=== PATIENT | female | born 1955 | race Caucasian/White ===

== ENCOUNTER 2018-09-06 15:08 | Observation (INO) | payer BC ==
[2018-09-06] MEDS ORDERED: NS 500 ML IV ONE (15:41)
--- NOTE | 2018-09-06 15:47 | EDPHY ---
H & P Time Seen by Provider: 09/06/18 15:17 HPI/ROS: CHIEF COMPLAINT: Headache, confusion HISTORY OF PRESENT ILLNESS: Patient is a 63-year-old female with a history of hypertension who presents to the emergency department with multiple complaints. The patient is visiting from [place]. [place]15 [place] She developed a mild headache. This is on the top of her head "like a beenie."It is mild. It does not radiate to her neck. The patient states that she had approximately 45 min to an hour of word-finding difficulty. She also felt confused and slow of thought. Patient's family was with her and noticed the same symptoms. Patient now states that her speech has improved. She does not feel as confused as previously. She denies any chest pain or shortness of breath. No abdominal pain. No nausea or vomiting. No recent trauma or fall. The patient had a similar episode previously. She was seen and [place] and told that she had anxiety. REVIEW OF SYSTEMS: 10 systems were reveiwed and are negative with the exception of the elements mentioned in the history of present illness. Past Medical/Surgical History: Includes hypertension. She is not taking any medication for this. She is enrolled in a study for meditation and hypertension. Past surgical history: Social history: Patient is from [place]. She does not smoke. Smoking Status: Never smoked Physical Exam: Vitals noted GENERAL: Well-appearing, in no acute distress, alert. HEENT: Eyes normal to inspection, normal pharynx, no signs of dehydration. NECK: Normal, supple. RESPIRATORY: Clear to auscultation bilaterally, no rales, rhonchi or wheezing. CVS: Regular rate and rhythm, no rubs, murmurs, or gallops. ABDOMEN: Soft, nontender, nondistended, no organomegaly. BACK: Normal to inspection, no CVA tenderness. SKIN: Normal color, no rash, warm, dry. No pallor. EXTREMITIES: No pedal edema, no calf tenderness, no Homans sign or cords, no joint swelling. NEURO/PSYCH: Higher functions: Alert and Oriented x3. Normal speech and cognition. Normal mood and affect. Cranial nerves: Normal as tested. Cerebellar: Normal as tested. Good finger to nose, good [id number], normal gait. Peripheral exam: Normal motor exam. Normal sensation. Normal reflexes. Constitutional: Initial Vital Signs Temperature (C) 36.8 C 09/06/18 15:12 Heart Rate 90 09/06/18 15:12 Respiratory Rate 20 09/06/18 15:12 Blood Pressure 171/123 H 09/06/18 15:12 O2 Sat (%) 99 09/06/18 15:12 O2 Delivery Mode Room Air Allergies/Adverse Reactions: Penicillins Allergy (Verified 09/06/18 15:11) Medical Decision Making - Diagnostics Imaging Results: Imaging Impressions Head CT 09/06/18 15:42 Impression: Normal. Findings and recommendations discussed with AYDEE AN at 4:10 PM hour, 09/06/2018. Final report concurs with initial preliminary interpretation. ED Course/Re-evaluation: In the emergency department discussed possible etiologies with the patient and family. I answered all her questions. IV was placed. Patient's initial blood pressure was elevated at 170 1/123. Repeat blood pressure improved to 150 5/ 85. I did not feel the patient needed to have her blood pressure acutely lowered with medication. Laboratory studies, EKG and head CT were ordered. The patient had a nonfocal neuro exam. I do not feel she is a candidate for tPA. Glucose was 176 EKG shows normal sinus rhythm, normal rate, normal axis, normal intervals. There are no ST or T-wave abnormalities. EKG is normal as interpreted by me. Patient's sodium was slightly low 133. The rest of her electrolytes were unremarkable. CT CBC was normal. Troponin was negative. Head CT: Please refer the dictated report. No acute disease noted. I discussed the results with the patient. I answered all her questions. I recommended admission for further evaluation for possible TIA. The patient agreed with this plan. On recheck the patient had a normal neuro exam. No focal deficits. No word-finding difficulty. I discussed the case with Dr. Weston from the hospitalist service. Differential Diagnosis: My differential includes but is not limited to TIA, ischemic CVA, hemorrhagic CVA, dissection, aneurysm, ACS, acute ID, dysrhythmia, electrolyte abnormality, sugar abnormality, dehydration - Data Points Laboratory Results: Laboratory Results 09/06/18 15:33 09/06/18 15:33 09/06/18 09/06/18 09/06/18 15:50 15:49 15:43 WBC RBC Hgb Hct MCV MCH MCHC RDW Plt Count MPV Neut % (Auto) Lymph % (Auto) [place] % (Auto) Eos % (Auto) Baso % (Auto) Nucleat RBC Rel Count Absolute Neuts (auto) Absolute Lymphs (auto) Absolute Monos (auto) Absolute Eos (auto) Absolute Basos (auto) Absolute Nucleated RBC Immature Gran % Immature Gran # PT INR APTT Sodium Potassium Chloride Carbon Dioxide Anion Gap BUN Creatinine Estimated GFR Glucose POC Glucose 176 mg/dL H mg/dL (70-100) Calcium POC Troponin I 0.01 ng/mL ng/mL (0.00-0.08) Urine Color PALE YELLOW Urine Appearance CLEAR Urine pH 8.0 H (5.0-7.5) Ur Specific [place] 1.004 (1.002-1.030) Urine Protein NEGATIVE (NEGATIVE) Urine Ketones 1+ H (NEGATIVE) Urine Blood NEGATIVE (NEGATIVE) Urine Nitrate NEGATIVE (NEGATIVE) Urine Bilirubin NEGATIVE (NEGATIVE) Urine Urobilinogen NEGATIVE EU EU (0.2-1.0) Ur Leukocyte Esterase NEGATIVE (NEGATIVE) Urine RBC 1-3 /hpf /hpf (0-3) Urine WBC 1-3 /hpf /hpf (0-3) Ur Epithelial Cells NONE SEEN /lpf /lpf (NONE-1+) Urine Glucose NEGATIVE (NEGATIVE) 09/06/18 09/06/18 09/06/18 15:33 15:33 15:33 WBC 7.12 10^3/uL 10^3/uL (3.80-9.50) RBC 4.51 10^6/uL 10^6/uL (4.18-5.33) Hgb 13.8 g/dL g/dL (12.6-16.3) Hct 40.0 % % (38.0-47.0) MCV 88.7 fL fL (81.5-99.8) MCH 30.6 pg pg (27.9-34.1) MCHC 34.5 g/dL g/dL (32.4-36.7) RDW 12.9 % % (11.5-15.2) Plt Count 333 10^3/uL 10^3/uL (150-400) MPV 9.1 fL fL (8.7-11.7) Neut % (Auto) 72.4 % % (39.3-74.2) Lymph % (Auto) 19.4 % % (15.0-45.0) Floyd % (Auto) 7.0 % % (4.5-13.0) Eos % (Auto) 0.3 % L % (0.6-7.6) Baso % (Auto) 0.6 % % (0.3-1.7) Nucleat RBC Rel Count 0.0 % % (0.0-0.2) Absolute Neuts (auto) 5.16 10^3/uL 10^3/uL (1.70-6.50) Absolute Lymphs (auto) 1.38 10^3/uL 10^3/uL (1.00-3.00) Absolute Monos (auto) 0.50 10^3/uL 10^3/uL (0.30-0.80) Absolute Eos (auto) 0.02 10^3/uL L 10^3/uL (0.03-0.40) Absolute Basos (auto) 0.04 10^3/uL 10^3/uL (0.02-0.10) Absolute Nucleated RBC 0.00 10^3/uL 10^3/uL (0-0.01) Immature Gran % 0.3 % % (0.0-1.1) Immature Gran # 0.02 10^3/uL 10^3/uL (0.00-0.10) PT 12.7 SEC SEC (12.0-15.0) INR 0.99 (0.83-1.16) APTT 28.6 SEC SEC (23.0-38.0) Sodium 133 mEq/L L mEq/L (135-145) Potassium 3.8 mEq/L mEq/L (3.5-5.2) Chloride 97 mEq/L mEq/L (97-110) Carbon Dioxide 22 mEq/l mEq/l (22-31) Anion Gap 14 mEq/L mEq/L (6-14) BUN 9 mg/dL mg/dL (7-23) Creatinine 0.6 mg/dL mg/dL (0.6-1.0) Estimated GFR > 60 Glucose 185 mg/dL H mg/dL (70-100) POC Glucose Calcium 10.0 mg/dL mg/dL (8.5-10.4) POC Troponin I Urine Color Urine Appearance Urine pH Ur Specific [place] Urine Protein Urine Ketones Urine Blood Urine Nitrate Urine Bilirubin Urine Urobilinogen Ur Leukocyte Esterase Urine RBC Urine WBC Ur Epithelial Cells Urine Glucose Medications Given: Discontinued Medications Sodium Chloride (Ns) 500 mls @ 500 mls/hr IV EDNOW ONE PRN Reason: Protocol Stop: 09/06/18 16:40 Last Admin: 09/06/18 16:02 Dose: 500 mls Point of Care Test Results: Chemistry 09/06/18 09/06/18 15:49 15:43 POC Glucose 176 mg/dL H mg/dL (70-100) POC Troponin I 0.01 ng/mL ng/mL (0.00-0.08) Departure - Departure Disposition: [facility] Inpatient Acute Clinical Impression: Aphasia, Hyponatremia Altered mental status Qualifiers: Altered mental status type: unspecified Qualified Code(s): R41.82 - Altered mental status, unspecified Condition: Fair Referrals: AVIS ORTIZ [Other] - As per Instructions
[2018-09-06 15:51] LABS: PLATELET COUNT 333 10^3/uL (150-400)
[2018-09-06 15:59] LABS: INR 0.99 (0.83-1.16); PROTIME(PATIENT) 12.7 SEC (12.0-15.0)
[2018-09-06] MEDS ORDERED: ONDANSETRON 4 MG/2 ML VIAL IVP PRN (16:41)
[2018-09-06] MEDS ORDERED: ONDANSETRON DISINTEGRATING 4 MG TAB PO PRN (16:41)
[2018-09-06] MEDS ORDERED: ACETAMINOPHEN 325 MG TAB PO PRN (16:41)
--- NOTE | 2018-09-06 17:28 | PDGENHP ---
History and Physical - Chief Complaint Asphasia - History of Present Illness 63 y/o w/hx of HTN and visiting from [place] presents w/TIA like symptoms after hiking the [place] w/her family. She reports she started the trail around 11:00am and when she came back down around 2:15pm (after a 2-3 mile hike), she felt "really bad," dizzy, nauseous, headache and difficulty finding words for approximately 45 minutes. Since that time, symptoms have resolved except for mild MA. She denies hx of TIA, stroke, blood clots. Denies CP, palpitations, SOB. Reports similar symptoms occurring in May and was deemed stress-induced/ panic attack and given a prescription for Valium. She does not think today was a panic attack as she admits to having a few panic attacks decades ago. She is being admitted for further work-up, treatment and monitoring. History Information - Allergies/Home Medication List Allergies/Adverse Reactions: Penicillins Allergy (Verified 09/06/18 15:11) Home Medications: Herbals/Supplements -Info Only 1 ea PO DAILY 09/06/18 [Last Taken 09/06/18] Multivitamins [Multivitamin (*)] 1 each PO DAILY 09/06/18 [Last Taken 09/06/18] I have personally reviewed and updated: family history, medical history, social history, surgical history - Past Medical History hypertension (Not treated. Currently enrolled in a mediation workshop to lessen HTN.) - Surgical History Additional surgical history: C/S - Family History Positive for: myocardial infarction - Social History Smoking Status: Never smoked Alcohol Use: Occasionally (Reports having a heavy etoh hx but reports she has lessened this and her last drink was earlier this week) Drug Use: None Additional social history: Here for a wedding. Was planning to fly back tonight. 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 Review of Systems Review of Systems: ROS: 10pt was reviewed & negative except for what was stated in HPI & below Physical Exam Physical Exam: Lab data and imaging were reviewed. Case discussed w/admitting physician, Dr. Kolton Weston. WBC: 7.12 H/H: 13.8/40.0 Plt count: 333 Na: 133 K: 3.8 Cl: 97 Co2: 22 BUN/Cr: 9/0.6 INR: 0.99 Troponin: 0.01 UA: Negative EKG: NSR Head CT w/o contrast: Normal, no intracranial processes or hemorrhage Temp Pulse Resp BP Pulse Ox 36.8 C 81 16 155/85 H 97 09/06/18 15:12 09/06/18 15:38 09/06/18 15:38 09/06/18 15:38 09/06/18 15:38 Constitutional: no apparent distress, appears nourished, not in pain Eyes: PERRL, anicteric sclera, EOMI Ears, Nose, Mouth, Throat: moist mucous membranes, hearing normal, ears appear normal, no oral mucosal ulcers Cardiovascular: regular rate and rhythym, no murmur, rub, or gallop, No edema Peripheral Pulses: 2+: dorsalis-pedis (R), dorsalis-pedis (L) Respiratory: no respiratory distress, no rales or rhonchi, clear to auscultation Gastrointestinal: normoactive bowel sounds, soft, non-tender abdomen, no palpable masses Genitourinary: no bladder fullness, no bladder tenderness Skin: warm, normal color, no rashes or abrasions, no fluctuance, no induration, No mottled Musculoskeletal: full muscle strength, no muscle tenderness, normal joint ROM, no joint effusions Neurologic: AAOx3, sensation intact bilaterally, CN II-XII Intact Psychiatric: not encephalopathic, thought process linear, anxious (Tearful because she has "so much work to do. How am I going to do it?") Lymph, Heme, Immunologic: no cervical LAD, no supraclavicular LAD Lab Data & Imaging Review 09/06/18 15:33 09/06/18 15:33 WBC 7.12 10^3/uL (3.80-9.50) 09/06/18 15:33 RBC 4.51 10^6/uL (4.18-5.33) 09/06/18 15:33 Hgb 13.8 g/dL (12.6-16.3) 09/06/18 15:33 Hct 40.0 % (38.0-47.0) 09/06/18 15:33 MCV 88.7 fL (81.5-99.8) 09/06/18 15:33 MCH 30.6 pg (27.9-34.1) 09/06/18 15:33 MCHC 34.5 g/dL (32.4-36.7) 09/06/18 15:33 RDW 12.9 % (11.5-15.2) 09/06/18 15:33 Plt Count 333 10^3/uL (150-400) 09/06/18 15:33 MPV 9.1 fL (8.7-11.7) 09/06/18 15:33 Neut % (Auto) 72.4 % (39.3-74.2) 09/06/18 15:33 Lymph % (Auto) 19.4 % (15.0-45.0) 09/06/18 15:33 [place] % (Auto) 7.0 % (4.5-13.0) 09/06/18 15:33 Eos % (Auto) 0.3 % (0.6-7.6) L 09/06/18 15:33 Baso % (Auto) 0.6 % (0.3-1.7) 09/06/18 15:33 Nucleat RBC Rel Count 0.0 % (0.0-0.2) 09/06/18 15:33 Absolute Neuts (auto) 5.16 10^3/uL (1.70-6.50) 09/06/18 15:33 Absolute Lymphs (auto) 1.38 10^3/uL (1.00-3.00) 09/06/18 15:33 Absolute Monos (auto) 0.50 10^3/uL (0.30-0.80) 09/06/18 15:33 Absolute Eos (auto) 0.02 10^3/uL (0.03-0.40) L 09/06/18 15:33 Absolute Basos (auto) 0.04 10^3/uL (0.02-0.10) 09/06/18 15:33 Absolute Nucleated RBC 0.00 10^3/uL (0-0.01) 09/06/18 15: Immature Gran % 0.3 % (0.0-1.1) 09/06/18 15: Immature Gran # 0.02 10^3/uL (0.00-0.10) 09/06/18 15:33 PT 12.7 SEC (12.0-15.0) 09/06/18 15:33 INR 0.99 (0.83-1.16) 09/06/18 15:33 APTT 28.6 SEC (23.0-38.0) 09/06/18 15:33 Sodium 133 mEq/L (135-145) L 09/06/18 15:33 Potassium 3.8 mEq/L (3.5-5.2) 09/06/18 15:33 Chloride 97 mEq/L (97-110) 09/06/18 15:33 Carbon Dioxide 22 mEq/l (22-31) 09/06/18 15:33 Anion Gap 14 mEq/L (6-14) 09/06/18 15:33 BUN 9 mg/dL (7-23) 09/06/18 15:33 Creatinine 0.6 mg/dL (0.6-1.0) 09/06/18 15:33 Estimated GFR > 60 09/06/18 15:33 Glucose 185 mg/dL (70-100) H 09/06/18 15:33 POC Glucose 176 mg/dL (70-100) H 09/06/18 15:43 Calcium 10.0 mg/dL (8.5-10.4) 09/06/18 15:33 POC Troponin I 0.01 ng/mL (0.00-0.08) 09/06/18 15:49 Urine Color PALE YELLOW 09/06/18 15:50 Urine Appearance CLEAR 09/06/18 15:50 Urine pH 8.0 (5.0-7.5) H 09/06/18 15:50 Ur Specific [place] 1.004 (1.002-1.030) 09/06/18 15:50 Urine Protein NEGATIVE (NEGATIVE) 09/06/18 15:50 Urine Ketones 1+ (NEGATIVE) H 09/06/18 15:50 Urine Blood NEGATIVE (NEGATIVE) 09/06/18 15:50 Urine Nitrate NEGATIVE (NEGATIVE) 09/06/18 15:50 Urine Bilirubin NEGATIVE (NEGATIVE) 09/06/18 15:50 Urine Urobilinogen NEGATIVE EU (0.2-1.0) 09/06/18 15:50 Ur Leukocyte Esterase NEGATIVE (NEGATIVE) 09/06/18 15:50 Urine RBC 1-3 /hpf (0-3) 09/06/18 15:50 Urine WBC 1-3 /hpf (0-3) 09/06/18 15:50 Ur Epithelial Cells NONE SEEN /lpf (NONE-1+) 09/06/18 15:50 Urine Glucose NEGATIVE (NEGATIVE) 09/06/18 15:50 Assessment & Plan Assessment: 63 y/o female w/hx of HTN that is not treated but undergoing mediation workshop for it presents w/ 45 minutes worth of asphasia, TIA symptoms. Her vital signs are the following: BP 155/85, HR 81, Resp 16, temp 36.8, 97% RA #Aphasia (Acute): Since arrival to ED, has resolved. -TIA work-up including: --neurology consult --brain MRI w/o contrast --lipids in AM --[employer] consult --cont tele monitoring --cycle trop x 1 -TSH pending #Headache -Tylenol PRN -Cold packs -Could be from dehydration; cont IVF x 1 bag #Hyponatremia (Acute) -133 -Appeared euvolemic however was involved w/strenuous hike -Received 500 ml NS in ED; cont IVF x 1 bag -Check Na in AM Diet: Regular once passes one-time RN swallow test Code: Full VTE ppx: SCDs Dispo: Admit to obs
[2018-09-06] MEDS ORDERED: NS 1,000 ML IV SCH (17:45)
--- NOTE | 2018-09-06 18:31 | HOSPPROG ---
Hospitalist Progress Note Assessment/Plan: I have personally seen and evaluated Ms. Catia Bales. I agree with the assessment and plan as outline in separate documentation by PIECE JOBBER, Amy Romero. Objective: Vital Signs Temp Pulse Resp BP Pulse Ox 36.7 C 87 18 148/85 H 97 09/06/18 17:52 09/06/18 17:52 09/06/18 17:52 09/06/18 17:52 09/06/18 17:52 PT 12.7 SEC (12.0-15.0) 09/06/18 15:33 INR 0.99 (0.83-1.16) 09/06/18 15:33 ICD10 Worksheet Patient Problems: Problems Problem Status Onset Altered mental status Acute Aphasia Acute Hyponatremia Acute
--- NOTE | 2018-09-06 22:11 | CPEKG ---
Test Reason : OPEN Blood Pressure : / mmHG Vent. Rate : 075 BPM Atrial Rate : 076 BPM P-R Int : 148 ms QRS Dur : 083 ms QT Int : 413 ms P-R-T Axes : 080 048 033 degrees QTc Int : 462 ms Sinus rhythm Confirmed by Aydee Magallanes ([id number]) on 09/06/2018 10:10:37 PM Referred By: AYDEE MAGALLANES Confirmed By:Aydee Magallanes
[2018-09-07 07:57] VITALS: BP 130/71
--- NOTE | 2018-09-07 08:45 | HOSPPROG ---
Hospitalist Progress Note Assessment/Plan: 63 y/o female w/hx of HTN that is not treated but undergoing mediation workshop for it presents w/ 45 minutes worth of asphasia, TIA symptoms. First encounter , chart reviewed. *Neurologic symptoms/likely due to dehydration and possible atypical migraine -MRI and CT stable -TSH stable -trop negative x 2 -LDL elevated at 113 *HTN *headache -likely due to being in high altitude, here from [facility] *hyponatremia -resolved *plan: reviewed her care w Dr Cleveland and ok to dc home Subjective: Catia has no specific complaints, bit tired. Objective: Vital Signs Temp Pulse Resp BP Pulse Ox 36.9 C 69 11 L 130/71 H 97 09/07/18 07:55 09/07/18 07:55 09/07/18 07:55 09/07/18 07:55 09/07/18 07:55 Laboratory Results 09/07/18 05:20 09/06/18 09/07/18 09/08/18 05:59 05:59 05:59 Intake Total 950 Balance 950 PT 12.7 SEC (12.0-15.0) 09/06/18 15:33 INR 0.99 (0.83-1.16) 09/06/18 15:33 - Physical Exam Constitutional: no apparent distress, appears nourished, not in pain Eyes: PERRL Ears, Nose, Mouth, Throat: hearing normal Cardiovascular: regular rate and rhythym, no murmur, rub, or gallop Respiratory: no respiratory distress Skin: warm Neurologic: AAOx3, other (tongue midline, rn home care equal, pull ups of toes equal), No pronator drift, No facial droop Psychiatric: interacting appropriately, not anxious, not encephalopathic, thought process linear ICD10 Worksheet Patient Problems: Problems Problem Status Onset Altered mental status Acute Aphasia Acute Hyponatremia Acute
[2018-09-07] MEDS ORDERED: MULTIVITAMINS 1 EACH TAB PO SCH (09:00)
--- NOTE | 2018-09-07 10:10 | NEUROPROG ---
Assessment: [id number] - Neurology Consult: - CC: Dr. Kolton Weston consulted neurology for aphasia. Results placed in EMR for his review. - HPI: 09/07/18: Pt noted on 09/06/18 after hiking that she suddenly felt dizzy, nauseous , had a headache, and noted problems speaking. Symptoms lasted 45 minutes then resolved except for a mild headache that has persisted overnight but is improving. Pt had similar episode in May 2017 (vision changes) attributed to an ocular migraine. Pt presented to [facility] on 09/06/18 where she had no neurologic deficits. Brain MRI wo was normal. I saw pt on 09/07/18. Her neurologic exam was normal. Given her symptoms had been recurrent (May 2017 and August 2018) and had persisted for 45 minutes in the setting of a normal brain MRI makes me believe she did not have a stroke or TIA but instead had an atypical migraine. No further treatment or evaluation needed at this time. She can f/u with her PCM when she returns to her home in [place], [place]. - PMHx: HTN - SHx: [place] FHx: [place] - ROS: Pt denied acute fever, total vision loss, active severe chest pain, respiratory failure, total body severe rash, total bowel/bladder incontinence, psychosis, active seizures, or active bleeding - O: VS reviewed General: Alert Eyes: Fundoscopic exam not able to visualize optic disks CV: Heart RRR, no murmur, no carotid bruit Lungs: Clear to auscultation bilaterally, no rhonchi or rales Neuro: - Mental: . Oriented x person/place/date . concentration appears normal . speech fluency/comprehension normal . memory appears normal . fund of knowledge appear intact - Cranial Nerves: . II: PERRL, VFFTC . III/IV/: EOMI, no nystagmus, normal smooth pursuits, no Ptosis . V: facial sensation intact to LT . VII: face symmetric to eye closure and smile . VIII: hearing intact to conversation . IX/X: uvula raises symmetrically . XI: SCM 5/5 B/L strength . XII: tongue protrudes midline w/nl strength - Motor: . Tone: normal tone in all 4 extremity . Strength: no pronator drift, strength 5/5 throughout (B/L delt, bic, tri, hand jewel cupping machine operator, hf/he, df/pf) - Reflexes: B/L bic/BR/patella 2/4 - Sensory: all 4 extremity intact to light touch - Coord: ftftab-oa-bard wnl, ANA wnl, cmxr-sp-mvvl wnl - Gait: deferred - Labs: 09/06/18- TSH wnl - Rads: 09/06/18- Brain MRI wo: normal (I personally visualized the images on 09/07/18) - Assessment/Recs: 1. 45 minutes of speech disturbance, nausea, headache, and dizziness on 09/06/18 : Given her symptoms had been recurrent (May 2017 and August 2018) and had persisted for 45 minutes in the setting of a normal brain MRI makes me believe she did not have a stroke or TIA but instead had an atypical migraine. No further treatment or evaluation needed at this time. She can f/u with her PCM when she returns to her home in [place], [place]. Her sudden change in neurologic status has resolved. Objective: Vital Signs Temp Pulse Resp BP Pulse Ox 36.9 C 69 11 L 130/71 H 97 09/07/18 07:55 09/07/18 07:55 09/07/18 07:55 09/07/18 07:55 09/07/18 07:55 Laboratory Results 09/07/18 05:20 09/06/18 09/07/18 09/08/18 05:59 05:59 05:59 Intake Total 950 Balance 950 PT 12.7 SEC (12.0-15.0) 09/06/18 15:33 INR 0.99 (0.83-1.16) 09/06/18 15:33 Allergies/Adverse Reactions: Penicillins Allergy (Verified 09/06/18 15:11)
--- NOTE | 2018-09-07 10:36 | ASMTLACE ---
LACE Length of stay for Answers: 1 day current admission Acuity / Level of Answers: No Care: Did the patient have an inpatient admission? Comorbidities - select Answers: Other Notes: HTN all that apply # of Emergency department Answers: 1-2 visits in the last 6 months Score: 3 Date Signed: 09/07/2018 10:35 AM Electronically Signed By:Henrietta Herrera RN
--- NOTE | 2018-09-07 10:37 | GDS ---
[f rep st] DISCHARGE SUMMARY DISCHARGE DIAGNOSES: 1. Neurologic symptoms, most likely due to dehydration and atypical migraine. 2. Hypertension. 3. Headache. 4. Hyponatremia. CONSULTATION: Dr. Donnell Cleveland. HISTORY OF PRESENT ILLNESS: Briefly, the patient is a 63-year-old female with a history of hypertens ion that is not treated, but undergoing meditation workshop for it, who presented with 45 minutes of difficulty speaking and overall just feeling poorly. She was admitted. She had an MRI and CT perfor med which were stable. She was evaluated by Neurology, who thought her symptoms were most consistent with an atypical migraine. She will be discharged home and follow up with her PCP. HOSPITAL COURSE: 1. Neurologic symptoms. I suspect this is mainly due to dehydration and possibly atypical migraine. She is much improved with fluids. 2. Hypertension. She is aware of this history. She is in a study in the [facility] to see if medi tation will help her blood pressure. 3. Headache. I suspect this is due to being in high altitude. She was hiking and became very dehyd rated. Improved. 4. Hyponatremia, resolved. DISCHARGE CONDITION: Stable. Blood pressure is 130/71, heart rate is 69, respiratory rate of 11, te mperature 36.9 Celsius, O2 sats on room air 97%. MEDICATIONS AT DISCHARGE: Please see the EMR. DISCHARGE INSTRUCTIONS: 1. To follow up with her PCP in regard to her elevated LDL and her hypertension. 2. Stay well hydrated. 3. If she has any fevers, chills, chest pain, stroke-like symptoms, return to the ER. /[id number]/MODL
--- NOTE | 2018-09-07 10:39 | ASMTCMCOM ---
CM Note CM Note Notes: Reviewed chart, pt admitted after feeling dizzy, sob, and headache after a hike around the [facility]. Pt is visiting from [place]. ruling out TIA. Pt is otherwise independent and will dc home with support of family when medically stable. CM availble should her needs change. DC Plan: Independent Date Signed: 09/07/2018 09:58 AM Electronically Signed By:Henrietta Herrera RN
== END 2018-09-07 11:52 | disposition home or self-care (01) ==
LOC: F3N 18:00
PROVIDERS: ADMIT Internal Medicine; ATTEND Internal Medicine
DX: E86.0 Dehydration (principal); G43.909 Migraine, unspecified, not intractable, without status migrainosus; I10 Essential (primary) hypertension; E87.1 Hypo-osmolality and hyponatremia; R41.0 Disorientation, unspecified
CPT/HCPCS: 70450; 70551; 93005; 99285; G0378; 84484-ER